=== PATIENT | female | born 1935 | race Caucasian/White ===

== ENCOUNTER 2016-11-15 13:08 | Emergency (ER) | payer OTHER ==
[~2016-11-15 13:08] MED LIST: DEXTROSE 25 GM/50 ML PFS IV ONE; LIDOCAINE 100 MG PFS IV ONE; ROCURONIUM 50 MG/5 ML VIAL IV ONE; SODIUM BICARBONATE 50 MEQ/50 ML (8.4%) PFS IV ONE
[2016-11-15] MEDS ORDERED: SODIUM BICARBONATE IV ONE (13:19)
[2016-11-15] MEDS ORDERED: DEXTROSE 25 GM/50 ML PFS IV ONE (13:19)
[2016-11-15] MEDS ORDERED: REGULAR INSULIN 100 UNITS/ML - 3 ML VIAL IV ONE (13:19)
[2016-11-15] MEDS ORDERED: SODIUM BICARBONATE 50 MEQ/50 ML (8.4%) PFS IV ONE (13:25)
[2016-11-15] MEDS ORDERED: ROCURONIUM 50 MG/5 ML VIAL IV ONE (13:25)
[2016-11-15] MEDS ORDERED: ETOMIDATE 20 MG/10 ML VIAL IV ONE (13:25)
[2016-11-15] MEDS ORDERED: MIDAZOLAM 5 MG/5 ML VIAL IV ONE (13:25)
[2016-11-15] MEDS ORDERED: LIDOCAINE 100 MG PFS IV ONE (13:25)
[2016-11-15 13:42] LABS: ALLEN'S TEST PASS; BEb 15.8 (+/- 2); TCO2 41.6 MMOL/L (23-27)
[2016-11-15 13:43] LABS: ABG Draw Site Right Radial; MODE AC 30 RATE
[2016-11-15 13:53] LABS: CALCIUM 9.8 MG/DL (8.4-10.2); CREATININE 3.1 MG/DL (0.52-1.04); TOTAL PROTEIN 7.4 G/DL (6.3-8.2)
[2016-11-15 13:59] VITALS: BMI 49.1
[2016-11-15] MEDS ORDERED: CALCIUM GLUCONATE 4.65 MEQ/10 ML VIAL IV ONE (14:00)
[2016-11-15] MEDS ORDERED: LIDOCAINE IV SCH (14:00)
[2016-11-15 14:06] LABS: MPV 9.8 fL (7.4-10.4)
[2016-11-15 14:12] LABS: PT-INR 1.2
--- NOTE | 2016-11-15 14:17 | DIRPT ---
CLINICAL DATA: Cardiopulmonary arrest. EXAM: PORTABLE CHEST 1 VIEW COMPARISON: 10/2016 FINDINGS: Endotracheal tube tip is at the origin of the right mainstem bronchus. The patient has patchy bilateral pulmonary infiltrates, increased on the right and new on the left. Heart size is normal. IMPRESSION: Progression of right pulmonary infiltrates. New peripheral left mid zone infiltrate. Endotracheal tube at the origin of the right mainstem bronchus. Critical Value/emergent results were called by telephone at the time of interpretation on 11/15/2016 at 2:[address] FADIA DEVLIN MD, who verbally acknowledged these results. Electronically Signed By: Nilo Abdi M.D. On: 11/15/2016 14:15
--- NOTE | 2016-11-15 14:28 | EDPRACDOC ---
- General Information Chief Complaint: CPR Stated Complaint: POST CPR Time Seen by Provider: 11/15/16 13:17 Information Source: Patient Mode of Arrival: Ambulance Home Medications: Home Medications Allopurinol [Zyloprim] 300 mg PO DAILY 09/25/13 Omeprazole 40 mg PO DAILY 12/03/14 Pravastatin Sodium 80 mg PO QAM 12/03/14 Multivitamin [Multiple Vitamins] 1 each PO DAILY 12/04/14 Tiotropium [place] [Spiriva] 1 puff INH .DAILY@1700 10/19/16 Albuterol Sulfate [Proventil, Ventolin] 2.5 mg NEB Q6H PRN 11/15/16 Calcium Citrate/Vitamin D3 [Citracal-Vit D Tablet (200 mg/250 mg)] 1 tab PO DAILY 11/15/16 Citalopram (anti-depressant) [Celexa] 20 mg PO DAILY 11/15/16 Diphenoxylate HCl/Atropine [Lomotil Tablet (2.5 mg/0.025 mg)] 1 tab PO QID PRN 11/15/16 Insulin Aspart [Novolog Flexpen] 0 unit SQ .ACHS SSI 11/15/16 Lactose-Reduced Food [Ensure Enlive] 237 ml PO DAILY 11/15/16 Ondansetron [Zofran Odt] 4 mg PO Q8H PRN 11/15/16 Tramadol HCl [Ultram] 50 mg PO Q6H PRN 11/15/16 Allergies/Adverse Reactions: Allergies Allergy/AdvReac Type Severity Reaction Status Date / Time codeine [Codeine] Allergy Mild Nausea/Vomi Verified 10/19/16 11:28 ting Sulfa (Sulfonamide Allergy Mild Nausea only Verified 10/19/16 11:28 Antibiotics) - History of Present Illness Onset: [employer] HPI: PT HAD BEEN DOING WELL RECENT. SUDDEN COLLAPSE / AMS IN FRONT OF NURSING STAFF. PULSELESS. CPR INITIATED FOR APPROX 10 MIN. EMS ARRIVED, VTACH ON MONITOR, SHOCKED X 1-2, ROSC. BVM. I/O RIGHT PRETIBIAL AREA. RECENT INPAT TREATMENT FOR ACUTE RENAL FAILURE, PROB ATN. D/C FROM [facility]PROX 5 DAYS AGO. ED Past Medical History - History Reviewed Information Unobtainable: Yes Unable to obtain information due to patient condition - Patient Medical History Cardiac History: Reports: Hypertension, Congestive Heart Failure, Cardiac Catheterization (neg), Hypercholesterolemia Respiratory History: Reports: Asthma, COPD GI/ History: Reports: Renal Disease (CREATININE BASELINE 3), Diverticulosis Musculoskeletal History: Reports: Arthritis, Gout (toes) Psychological History: Reports: Depression, Anxiety. Denies: Substance Use Disorder Systemic History: Reports: Diabetes Surgical History: Reports: Cholecystectomy, Cardiac Catheterization (neg), Hernia Surgery - Family Medical History Reports: Hypertension (daughter), Cancer (daughter-breast), Stroke (dad), Cardiac Disorders (mom- heart attack). Denies: Diabetes - Social Medical History Smoking Status: Former smoker Social History: Denies: Substance Use Disorder EDM Review of Systems - Review of Systems ROS Unobtainable: Yes Review of systems cannot be obtained due to the patient's medical condition - Physical Exam Last recorded Vital Signs: Last Vital Signs Temp Pulse 90 11/15/16 13:39 Resp 30 H 11/15/16 13:24 BP 137/78 11/15/16 13:24 Pulse Ox 91 11/15/16 13:24 Oxygen Pulse Oxygen Saturation 91 O2 Device Oxygen Flow Rate Fraction of Inspired Oxygen ( 100 FIO2) Exam: ELDERLY FEMALE, ASSISTED VENTILATIONS BY EMS. HEART RATE APPROXIMATELY 96 FREQUENT PVCS, SYSTOLIC BLOOD PRESSURE APPROXIMATELY 1/50 HEENT IS NORMOCEPHALIC ATRAUMATIC PUPILS ARE RESPONSIVE OROPHARYNX DOES DEMONSTRATE SOME VOMITUS NECK OBESE DIFFICULT TO EVALUATE LUNGS COARSE BREATH SOUNDS WITH ASSISTED VENTILATIONS SHE IS BREATHING SPONTANEOUSLY RAPIDLY. CARDIOVASCULAR IS IRREGULAR RHYTHM NO REST DISCUSSED MURMURS ABDOMEN REMARKABLY DISTENDED TYMPANITIC. BACK IS NORMAL EXTREMITIES WARM WELL PERFUSED DORSALIS PEDIS IS 2+. HOWEVER PALPABLE PULSES CORRELATE TO SINUS RHYTHM WHEN THE PATIENT GOES INTO V-TACH SHE DOES NOT HAVE A PULSE WITH THIS. NEUROLOGICALLY HER EYES ARE OPEN SHE DOES TRACK SOMETIMES WITH HER SHE DOES NOT FOLLOW COMMANDS SHE HAS MOVE BILATERAL UPPER EXTREMITIES. ED Procedures - Intubation Informed of risks, benefits and alternatives described.: Yes Informed Consent Signed: Unable Indication: Respiratory Insufficiency, Altered Mental Status, Airway Protection Intubation Date: 11/15/16 Time of Intubation: 13:30 Pre-oxygenation completed: Yes Number of Attempts: 1 Russell Used: Yes Intubation Method: Oral Endotracheal Tube Size (cm): 7.5 Position at Lip: 19 ETCO2 Detector Positive: Yes Breath Sounds after Intubation: equal Medications: Pancuronium, Versed Post Intubation Procedure CXR ordered?: Yes (ETT DEEP, REMOVED 4 CM) - Re-evaluation Re-evaluation 3 Re-evaluation Time: 15:50 CURRENTLY CRITICAL CARE TEAM HAS ARRIVED AT THE EMERGENCY DEPARTMENT. THE PATIENT 'S CURRENT CONDITION IS SHE IS SEDATED AND INTUBATED ON THE VENT. CARDIAC RHYTHM IS RECURRENT/NON SUSTAINED V-TACH. V-TACH LASTING WERE FROM 6 BEATS TO 10-15 SECONDS. WHILE THE PATIENT IS IN V-TACH SHE DOES NOT HAVE A PULSE. WHILE THE PATIENT IS OUT OF V-TACH SHE HAS A BOUNDING DORSALIS PEDIS PULSE. [facility] TRANSPORT TEAM HAS SIGNIFICANT CONCERNS ABOUT STABILITY FOR TRANSFER IN THE [id number] SETTING. THIS IS CERTAINLY A CONSIDERATION. HOWEVER THE PATIENT HAS BEEN EMERGED PART OF FOR APPROXIMATELY 3 HOURS, DURING THIS TIME. SHE HAS HAD THE SAME PATTERN OF RECURRENT V-TACH THAT WAS NONSUSTAINED SHE HAS NOT LOST HER PULSES SINCE SHE HAS BEEN HERE. SHE HAS NOT HAD HAS CPR SINCE SHE HAS BEEN HERE. HER MENTAL STATUS IS IMPROVED SHE HAS AWAKENED AND MOVED ALL 4 EXTREMITIES SEVERAL TIMES. GIVEN THE LIMITED RESOURCES [facility], FACT THAT WE HAVE DONE MUCH POSSIBLE AT THIS TIME., THE FACT THAT SHE HAS RENAL INSUFFICIENCY AND WILL MOST CERTAINLY HAVE RENAL FAILURE ASSOCIATED WITH HER CURRENT CONDITION REQUIRING NEPHROLOGY, THE PATIENT WILL REQUIRE TERTIARY REFERRAL PLACEMENT. AT THIS PARTICULAR JUNCTION I THINK THE PATIENT IS STABLE ENOUGH FOR TRANSFER, GIVEN THAT BENEFITS EXCEED THE RISK. HAVE DISCUSSED THIS WITH DR. PRICE THE PULMONOLOGY ATTENDING WHO WILL BE THE ATTENDING TAKING CARE OF THE PATIENT WELL - Results 11/15/16 13:20 11/15/16 13:20 WBC 21.2 xk/uL (3.8-10.8) H 11/15/16 13:20 RBC 3.48 xM/uL (4.20-5.40) L 11/15/16 13:20 Hgb 10.7 g/dL (12.0-16.0) L D 11/15/16 13:20 Hct 33.5 % (36-47) L 11/15/16 13:20 MCV 96 fL (81-99) 11/15/16 13:20 MCH 30.7 pg (27-32) 11/15/16 13:20 MCHC 31.9 g/dl (33-36) L 11/15/16 13:20 RDW 16.3 % (11.5-14.5) H 11/15/16 13:20 Plt Count 394 xk/uL (130-400) 11/15/16 13:20 MPV 9.8 fL (7.4-10.4) 11/15/16 13:20 PT 12.7 SEC (9.2-11.2) H 11/15/16 13:20 INR 1.2 11/15/16 13:20 APTT 24.0 SEC (22-35) 11/15/16 13:20 Puncture Site Right radial 11/15/16 13:41 pH 7.550 pH UNITS (7.35-7.45) H 11/15/16 13:41 pCO2 46.0 mmHg (35-45) H 11/15/16 13:41 pO2 55.0 mmHg (80-100) L 11/15/16 13:41 HCO3 40.2 MMOL/L (22-26) H 11/15/16 13:41 Total CO2 41.6 MMOL/L (23-27) H 11/15/16 13:41 Base Excess 15.8 (+/- 2) H 11/15/16 13:41 Vent Mode Ac 30 RATE 11/15/16 13:41 FiO2 % 100% 11/15/16 13:41 Tidal Volume 400 ML 11/15/16 13:41 Specimen Drawn By Stana 11/15/16 13:41 Sodium 143 mEq/L (137-146) 11/15/16 13:20 Potassium 3.2 mEq/L (3.5-5.1) L 11/15/16 13:20 Chloride 92 mEq/L (98-107) L 11/15/16 13:20 Carbon Dioxide 33 mMOL/L (22-33) 11/15/16 13:20 Anion Gap 21 mEq/L (8-16) H 11/15/16 13:20 BUN 60 MG/DL (7-17) H 11/15/16 13:20 Creatinine 3.10 MG/DL (0.52-1.04) H 11/15/16 13:20 Estimated GFR (MDRD) 14 mL/min (>=60) L 11/15/16 13:20 Glucose 169 MG/DL (70-99) H 11/15/16 13:20 Calculated Osmolality 296 MOs/Kg (270-290) H 11/15/16 13:20 Calcium 9.8 MG/DL (8.4-10.2) 11/15/16 13:20 Corrected Calcium 10.0 MG/DL (8.4-10.2) 11/15/16 13:20 Magnesium 1.90 MG/DL (1.6-2.3) 11/15/16 13:20 Total Bilirubin 0.9 MG/DL (0.2-1.3) 11/15/16 13:20 AST 127 IU/L (14-36) H 11/15/16 13:20 ALT 78 IU/L (9-52) H 11/15/16 13:20 Alkaline Phosphatase 95 IU/L (55-165) 11/15/16 13:20 Troponin I 0.20 ng/mL (<.04) 11/15/16 13:20 Total Protein 7.4 G/DL (6.3-8.2) 11/15/16 13:20 Albumin 3.8 G/DL (3.5-5.0) 11/15/16 13:20 Lab Results 11/15/16 11/15/16 11/15/16 13:41 13:20 13:20 WBC 21.2 H RBC 3.48 L Hgb 10.7 L D Hct 33.5 L MCV 96 MCH 30.7 MCHC 31.9 L RDW 16.3 H Plt Count 394 MPV 9.8 PT 12.7 H INR 1.2 APTT 24.0 Puncture Site Right radial pH 7.550 H pCO2 46.0 H pO2 55.0 L HCO3 40.2 H Total CO2 41.6 H Base Excess 15.8 H Vent Mode Ac 30 FiO2 % 100% Tidal Volume 400 Specimen Drawn By Stana Sodium Potassium Chloride Carbon Dioxide Anion Gap BUN Creatinine Estimated GFR (MDRD) Glucose Calculated Osmolality Calcium Corrected Calcium Magnesium Total Bilirubin AST ALT Alkaline Phosphatase Troponin I Total Protein Albumin 11/15/16 13:20 WBC RBC Hgb Hct MCV MCH MCHC RDW Plt Count MPV PT INR APTT Puncture Site pH pCO2 pO2 HCO3 Total CO2 Base Excess Vent Mode FiO2 % Tidal Volume Specimen Drawn By Sodium 143 Potassium 3.2 L Chloride 92 L Carbon Dioxide 33 Anion Gap 21 H BUN 60 H Creatinine 3.10 H Estimated GFR (MDRD) 14 L Glucose 169 H Calculated Osmolality 296 H Calcium 9.8 Corrected Calcium 10.0 Magnesium 1.90 Total Bilirubin 0.9 AST 127 H ALT 78 H Alkaline Phosphatase 95 Troponin I 0.20 Total Protein 7.4 Albumin 3.8 - EKG EKG #1 EKG Time: 13:15 -: Yes EKG interpreted by me Rate: bpm: 80 Rhythm: Other (SINUS WITH FREQUENT PVC) Comments: H/O CHRONIC LBBB EKG #2 EKG Time: 13:19 -: Yes EKG interpreted by me Rate: bpm: 48 [place]: Normal Rhythm: Afib Block: LBBB Hypertrophy: None ST: Nonsp EKG #3 EKG Time: 13:29 -: Yes EKG interpreted by me Rate: bpm: 60 Rhythm: Other Block: 2 Hypertrophy: None ST: Nonsp Comments: RELATIVELY NARROW COMPLEX EKG #4 EKG Time: 13:44 -: Yes EKG interpreted by me Rate: bpm: VARIABLE Rhythm: Other (INTERMITTENT NARROW AND WIDE COMPLEX TACHYCARDIA) Hypertrophy: None Comments: NONSUSTAINED WIDE COMPLEX TACHYCARDIA EKG #5 EKG Time: 13:48 -: Yes EKG interpreted by me Rate: bpm: 121 [place]: Normal Hypertrophy: None ST: Nonsp Comments: WIDE COMPLEX NON-SUSTAINED TACHYCARIA 6 EKG Time: 13:59 -: Yes EKG interpreted by me Rate: bpm: 51 Block: RBBB Hypertrophy: None ST: Nonsp - Diagnostic Imaging Chest Image interpreted by: Radiologist Patient Name: MONA FITZGERALD LOC: ED : 1935 AGE: 81 Order Date:11/15/16 Date of Service:12/01 Report # [id number] Ord Physician: Fadia Dahl MD Exam # [id number] Emergency Physician: Fadia Dahl MD Exam(s): [id number] RAD/DG CHEST PORTABLE CLINICAL DATA: Cardiopulmonary arrest. EXAM: PORTABLE CHEST 1 VIEW COMPARISON: 10/2016 FINDINGS: Endotracheal tube tip is at the origin of the right mainstem bronchus. The patient has patchy bilateral pulmonary infiltrates, increased on the right and new on the left. Heart size is normal. IMPRESSION: Progression of right pulmonary infiltrates. New peripheral left mid zone infiltrate. Endotracheal tube at the origin of the right mainstem bronchus. Critical Value/emergent results were called by telephone at the time of interpretation on 11/15/2016 at 2:[address] FADIA DAHL MD, who verbally acknowledged these results. Electronically Signed By: Nilo Abdi M.D. On: 11/15/2016 14:15 Electronically Signed By: Nilo Abdi MD Electronically Signed Date/Time: [id number] Dictate Date/Time: 11/15/16 1402 Technologist: Nieves Rutledge Transcribed By: Leandro Transcribed Date/Time: 11/15/16 1415 - Additional Information ED COURSE: PATIENT IS BROUGHT TO THE EMERGENCY DEPARTMENT IN EXTREMIS WITH ASSISTED VENTILATIONS NOT INTUBATED AIRWAY WAS NOT SECURED HOWEVER BREATHING WAS MARKEDLY COMPROMISED BY THE STENT IS ABDOMEN. INITIAL RHYTHM WAS INTERMITTENT NONSUSTAINED V-TACH BUT PATIENT WAS PULSELESS WITH A V-TACH. NGT WAS IMMEDIATELY PLACED IN ATTEMPT TO DECOMPRESS THE ABDOMEN AND ASSIST VENTILATION IS THIS WAS PLACED WITHOUT DIFFICULTY HOWEVER IT DID NOT MAKE A SIGNIFICANT DIFFERENCE IN RESPIRATORY EFFORT. PATIENT 'S MEDICAL RECORDS NOTED RECENT 82 IN AND ACUTE RENAL FAILURE, THEREFORE GIVEN THE WIDE COMPLEX TACHYCARDIA IRREGULAR RHYTHM PRESUMED HYPERKALEMIA WAS THE WORKING DIAGNOSIS NASALLY AND SHE WAS TREATED AGGRESSIVELY FOR HYPERKALEMIA COMPLETELY WITH EXCEPTION OF KAYEXALATE. THIS DID NOT MAKE ANY IMPACT IN HER CARDIAC RHYTHM. RESPIRATORY EFFORT WAS STILL LABORED SHE HAD BEEN SWITCHED TO A NON-REBREATHER BUT WAS STILL LABORED UNPROTECTED AIRWAY THEREFORE A DECISION TO INTUBATE WAS MADE SHE WAS INTUBATED EASILY WITH ETOMIDATE AND ROCURONIUM. LIDOCAINE WAS INITIATED WITH A BOLUS 100 MG AND A DRIP AT 2 MG PER KG. THIS WAS TITRATED UP TO 4 MILLIGRAMS/KILOGRAM THIS DID NOT HAVE ANY EFFECT AND THE RECURRENT V-TACH. DURING SEVERAL THE LONG STRETCHES OF V-TACH SHE WAS SYNCHRONIZED CARDIOVERTED AT 2:00 A.M. AND THEN 300 JOULES AGAIN THIS DID NOT IMPROVE HER RETURN V-TACH. CARDIOLOGY WAS CONSULTED CASE WAS DISCUSSED DR. STEPHENS RECOMMEND SWITCHING FROM LIDOCAINE TO AMIODARONE. AFTER HE HAS SEEN THE PATIENT IN CONSULTATION EMERGED DEPARTMENT HE THINKS THAT 3 CONTINUING AMIODARONE IS THE CURRENT RECOMMENDED COURSE. GIVEN HER COMPLEX NATURE AND UNDERLYING RENAL FAILURE TRANSFER TO TERTIARY REFERRAL CENTER WAS WARRANTED DISCUSSED WITH [facility] HAS TAKEN THE PATIENT TRANSFER. ED Critical Care Note - Critical Care Note Total Time (mins): 65 Comments: Due to the presence of and / or the risk of deterioration, my attendance to this patient required critical care time, including assessment/reassessment, documentation, ordering and interpreting ancillary studies, discussion with ED staff and consultants,patient and family, and excludes time spent on separately billable procedures. - Departure Disposition: Trans. to Other Hospital ([facility]) Condition: Unstable Final Diagnosis: VTACH CARDIAC ARREST, Cardiac arrest, Cardiac arrest with successful resuscitation, Respiratory failure Education/Counseling Given To: Family Member Education/Counseling Given Regarding: Diagnosis, Treatment, Prognosis Referrals: Dagmar Braden MD [Primary Care Provider] - As Needed Decision to Transfer Time: 14:47 - Physician Consulted Cardiology Time Called: 14:29 Provider Called: Wild Gomez Time Head Charrer Returned Call: 14:30 (STOP LIDO, START AMIOD LOAD AND BOLUS) Hospitalist Time Called: 14:36 Provider Called: Alo Sebastian Time Head Charrer Returned Call: 14:36 (EXCEED LEVEL OF CARE AT [facility]) [facility] Time Called: 14:36 Provider Called: KEATON Time Head Charrer Returned Call: 14:47 (ACCEPTS IN TRANSFER)
[2016-11-15] MEDS ORDERED: AMIODARONE 150 MG/3 ML VIAL IV ONE (14:30)
[2016-11-15] MEDS ORDERED: Non-Formulary Medication 1 in D5W 100 ML IV SCH (14:31)
[2016-11-15] MEDS ORDERED: AMIODARONE 360 MG/200 ML RTU IV ONE (14:33)
[2016-11-15 14:35] LABS: SEG NEUTROPHIL 37 % (45-76); TOTAL CELL COUNT 100
[2016-11-15] MEDS ORDERED: NS 1,000 ML IV ONE (14:40)
[2016-11-15] MEDS ORDERED: MIDAZOLAM 5 MG/5 ML VIAL IV PRN (14:45)
[2016-11-15] MEDS ORDERED: MIDAZOLAM IV SCH (15:00)
[2016-11-15] MEDS ORDERED: D5W IV ONE (15:00)
[2016-11-15] MEDS ORDERED: AMIODARONE IV ONE (15:00)
[2016-11-15] MEDS ORDERED: SODIUM CHLORIDE IV SCH (15:00)
[2016-11-15 15:45] VITALS: TEMP 99.1
--- NOTE | 2016-11-15 15:48 | PCM.CARDCO ---
Consultation Date: 11/15/16 Requesting Physician: Roxie Dahl (cardiac arrest, v tach) Consulting Doctor: Wild Gomez Consult Reason: Dysrhythmia Travel Outside of [place] in the Last 3 Months?: No Consultation Note: History of Present Illness: CAlled by Dr. Dahl to consult in care in ER of 81 yo WF, pt of Dr. Braden with hx of CKD, recent kidney infection with decomp of CKD, and "CHF" according to three children. Pt was recently hosp at [facility] for decomp CKD, and in view of continuing instability of cardiac rhythm, persistent salvos of non-sustained V Tach, and decision was made prior to my arrival to transfer pt back to [facility] for more extensive faciilities and advanced cardiac care. Hx was briefly reviewed with dtr and two sons, and son-in- law in attendance. They indicate pt has expressed desicre for fully aggressive care incl advanced life support if required. Past Medical History: (see HPI) Past Surgical History: (not immediately available) Allergies codeine [Codeine] Allergy (Mild, Verified 10/19/16 11:28) Nausea/Vomiting Sulfa (Sulfonamide Antibiotics) Allergy (Mild, Verified 10/19/16 11:28) Nausea only Home Medications Allopurinol [Zyloprim] 300 mg PO DAILY 09/25/13 Omeprazole 40 mg PO DAILY 12/03/14 Pravastatin Sodium 80 mg PO QAM 12/03/14 Multivitamin [Multiple Vitamins] 1 each PO DAILY 12/04/14 Tiotropium [place] [Spiriva] 1 puff INH .DAILY@1700 10/19/16 Albuterol Sulfate [Proventil, Ventolin] 2.5 mg NEB Q6H PRN 11/15/16 Calcium Citrate/Vitamin D3 [Citracal-Vit D Tablet (200 mg/250 mg)] 1 tab PO DAILY 11/15/16 Citalopram (anti-depressant) [Celexa] 20 mg PO DAILY 11/15/16 Diphenoxylate HCl/Atropine [Lomotil Tablet (2.5 mg/0.025 mg)] 1 tab PO QID PRN 11/15/16 Insulin Aspart [Novolog Flexpen] 0 unit SQ .ACHS SSI 11/15/16 Lactose-Reduced Food [Ensure Enlive] 237 ml PO DAILY 11/15/16 Ondansetron [Zofran Odt] 4 mg PO Q8H PRN 11/15/16 Tramadol HCl [Ultram] 50 mg PO Q6H PRN 11/15/16 Review of Systems: Not obtainable. Physical Examination: Temperature: ()HR: 92 (11/15/16 15:32)RR: 18 (11/15/16 15:32)BP: 99/59 ( 15:32) SAT:96 (11/15/16 15:32) Obese, elderly woman, intubuted on vent. Eyes open, but unalbe to obey simple command (hand squeeze) or respond to questions Good breath sounds bilat. Cor: irreg irreg, faint heart tones, no obvious murmur or gallop Ext; mild/mod bipedal edema with chronic venous stasis and cellulitic changes LAB/DI: [] Laboratory Tests 11/15/16 11/15/16 11/15/16 13:20 13:20 13:41 WBC 21.2 H Hgb 10.7 L D Hct 33.5 L pH 7.550 H pCO2 46.0 H pO2 55.0 L HCO3 40.2 H Sodium 143 Potassium 3.2 L Chloride 92 L Carbon Dioxide 33 BUN 60 H Creatinine 3.10 H Estimated GFR (MDRD) 14 L Calcium 9.8 Corrected Calcium 10.0 Magnesium 1.90 Total Bilirubin 0.9 AST 127 H ALT 78 H Troponin I 0.20 EKG: NSR with non-specific intraventricular conduction defect, recurrent salvos of non-sustained V Tach, some features suggesting torsade. IMPRESSION: recurrent repetitive salvos of complex V tach, s/p cardiac arrest during [place] rehab stay. REC: based on hx, initiation of amiodarone loading was suggested over phone. Transfer for admission to larger center with more extensive facilities appears appropriate based on available history
[2016-11-15] MEDS: Magnesium Sulfate 1 gm/D5W 1 GM/100 ML RTU IV SCH ×2 (16:08→17:07)
[2016-11-15 16:36] LABS: CALCIUM 8.9 MG/DL (8.4-10.2); CREATININE 2.8 MG/DL (0.52-1.04); TOTAL PROTEIN 5.9 G/DL (6.3-8.2)
[2016-11-15 16:46] VITALS: BP 140/70
[2016-11-15 16:50] VITALS: PULSE 125
[2016-11-15 16:53] LABS: ALLEN'S TEST PASS; BEb 12.7 (+/- 2); TCO2 38.9 MMOL/L (23-27)
[2016-11-15 16:54] LABS: ABG Draw Site Right Radial; MODE AC/30 RATE
[2016-11-15] MEDS ORDERED: KCl 10 mEq/100 ml Premix (Run) 10 MEQ/100 ML RTU IV ONE (16:59)
[2016-11-15] MEDS ORDERED: FENTANYL 100 MCG/2 ML VIAL ONE (17:21)
== END 2016-11-15 16:35 | disposition home or self-care (01) ==
LOC: ED 13:08
DX: I46.9 Cardiac arrest, cause unspecified (principal); I47.2 Ventricular tachycardia; J96.90 Respiratory failure, unspecified, unspecified whether with hypoxia or hypercapnia; I12.9 Hypertensive chronic kidney disease with stage 1 through stage 4 chronic kidney disease, or unspecified chronic kidney disease; N18.3 Chronic kidney disease, stage 3 (moderate); I50.9 Heart failure, unspecified; E11.9 Type 2 diabetes mellitus without complications; E78.00 Pure hypercholesterolemia, unspecified; J45.909 Unspecified asthma, uncomplicated; J44.9 Chronic obstructive pulmonary disease, unspecified; M19.90 Unspecified osteoarthritis, unspecified site; M10.9 Gout, unspecified; F41.9 Anxiety disorder, unspecified; F32.9 Major depressive disorder, single episode, unspecified; Z79.4 Long term (current) use of insulin; Z79.899 Other long term (current) drug therapy; Z87.891 Personal history of nicotine dependence
CPT/HCPCS: 31500; 36600; 71010; 80053; 82803; 83735; 84484; 85007; 85027; 85610; 85730; 93005; 96361; 96365; 96366; 96375; 96376; 99285; 99291; A9270; J0282; J0610; J2001; J2250; J3010; J3475; J3480; J3490; J7060